=== PATIENT | female | born 1970 | race Caucasian/White ===

== ENCOUNTER 2024-11-05 23:54 | Emergency (ER) | payer OTHER ==
[2024-11-06] MEDS ORDERED: HYDROCODONE/APAP 5/325 MG TAB ONE (01:37)
[2024-11-06] MEDS ORDERED: ONDANSETRON 4 MG (ODT) TAB ONE (01:37)
--- NOTE | 2024-11-06 04:03 | EDPHYS ---
Physician Documentation [facility] Name: Roshni Liz Age: 54 yrs Sex: Female : 1970 Arrival Date: 11/05/2024 Time: 23:54 Bed 14 Private MD: ED Physician Brock Cancino HPI: 11/06 01:39 This 54 yrs old Female presents to ER via Ambulatory with complaints of Fall Injury, ms3 Wrist Injury, Shoulder Pain. 01:39 54-year-old female with past medical history of migraines presents to the emergency ms3 department status post fall while standing on a chair. Patient states she fell striking her head onto a hardwood floor. Patient denies loss of consciousness. Patient endorses nausea, dizziness, confusion. Patient's notes patient fell approximately 30 minutes prior to arrival. Patient is stating she has left wrist and a headache. 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 - Infectious Disease History:: Denies. - Social history:: Smoking status: Patient denies any tobacco usage or history of. Patient uses alcohol, occasionally. Patient/guardian denies using street drugs. ROS: 01:39 Constitutional: Negative for fever, and chills. Cardiovascular: Negative for chest ms3 pain, and palpitations. Respiratory: Negative for shortness of breath, cough, wheezing, and pleuritic chest pain, Abdomen/GI: Negative for abdominal pain, nausea, vomiting, diarrhea, and constipation, Skin: Negative for injury, rash, and discoloration, 01:39 MS/extremity: Positive for pain, tenderness, of the left wrist, Exam: 01:39 Constitutional: This is a well developed, well nourished patient who is awake, alert, ms3 and in no acute distress. Neck: Trachea midline, no cervical lymphadenopathy. Supple, full range of motion without nuchal rigidity, or vertebral point tenderness. No Meningismus. Cardiovascular: Regular rate and rhythm with a normal S1 and S2. No gallops, murmurs, or rubs. Normal PMI, no JVD. No pulse deficits. Respiratory: Lungs have equal breath sounds bilaterally, clear to auscultation and percussion. No rales, rhonchi or wheezes noted. No increased work of breathing, no retractions or nasal flaring. Abdomen/GI: Soft, non-tender, with normal bowel sounds. No distension or tympany. No guarding or rebound. No evidence of tenderness throughout. Back: No spinal tenderness. No costovertebral tenderness. Full range of motion. Skin: Warm, dry with normal turgor. Normal color with no rashes, no lesions, and no evidence of cellulitis. MS/ Extremity: Pulses equal, no cyanosis. Neurovascular intact. Full, normal range of motion. Neuro: Awake and alert, GCS 15, oriented to person, place, time, and situation. Cranial nerves II-XII grossly intact. Motor strength 5/5 in all extremities. Sensory grossly intact. Cerebellar exam normal. Normal gait. Vital Signs: 00:04 BP 125 / 82; Pulse 103; Resp 16 S; Temp 97.6(O); Pulse Ox 99% on R/A; Weight 74.39 kg lg3 (R); Height 5 ft. 6 in. (R); Pain 7/10; 00:30 BP 108 / 75; Pulse 92; Resp 16; Pulse Ox 98% on R/A; dd2 01:30 BP 92 / 65; Pulse 97; Resp 16; Pulse Ox 100% on R/A; dd2 02:30 BP 103 / 62; Pulse 86; Resp 16; Pulse Ox 99% on R/A; dd2 04:12 BP 101 / 61; Pulse 84; Resp 16; Pulse Ox 100% on R/A; dd2 00:04 Body Mass Index 26.47 (74.39 kg, 167.64 cm) lg3 00:04 Pain Scale: Adult lg3 [place] Coma Score: 00:16 Eye Response: spontaneous(4). Motor Response: obeys commands(6). Verbal Response: dd2 oriented(5). Total: 15. MDM: 00:15 Medical Screening Exam initiated ms3 01:39 Differential diagnosis: abrasion, closed head injury, contusion, fracture, sprain, ms3 strain. 05:56 Data reviewed: vital signs, nurses notes, lab test result(s), radiologic studies, and ms3 as a result, I will discharge patient. I considered the following discharge prescriptions or medication management in the emergency department Medications were administered in the Emergency Department. See MAR. Independent interpretation of the following test(s) in the Emergency Department X-Ray: My interpretation is Left wrist x-ray images reviewed by me did not reveal fractures. CT Scan: My interpretation is CT Brain without contrast images reviewed by me do not reveal ICH. Counseling: I had a detailed discussion with the patient and/or guardian regarding the historical points, exam findings, and any diagnostic results supporting the discharge/admit diagnosis, lab results, radiology results, the need for outpatient follow up, to return to the emergency department if symptoms worsen or persist or if there are any questions or concerns that arise at home. Special discussion: I discussed with the patient/guardian in detail that at this point there is no indication for admission to the hospital. It is understood, however, that if the symptoms persist or worsen the patient needs to return immediately for re-evaluation. ED course: Discussed my review of imaging with the patient and her . Patient has been wished to be discharged prior to final radiology reads. Patient to follow-up with primary care physician 2 to 3 days. Patient understands and agrees with plan. All questions were answered. Return precautions discussed include worsening symptoms, or any other concerns. After final results resulted patient was called and notified of her x-ray and CT results.. 11/06 00:15 Order name: CT Head Brain wo Cont ms3 11/06 00:16 Order name: Wrist Left (3 View) XRAY ms3 11/06 03:59 Order name: Splint - Wrist; Complete Time: 04:04 dd2 Administered Medications: 01:41 Drug: HYDROcodone-acetaminophen PO 5 mg-325 mg 1 tabs PO once Route: PO; dd2 02:10 Follow up: Response: No adverse reaction dd2 01:41 Drug: Ondansetron PO 4 mg PO once Route: PO; dd2 02:10 Follow up: Response: No adverse reaction dd2 Disposition Summary: 11/06/24 04:02 Discharge Ordered Notes: Location: Home ms3 Condition: Stable ms3 Diagnosis - Concussion without loss of consciousness ms3 - Fall (on)(from) incline ms3 - Pain in left wrist ms3 Followup: ms3 - With: Private Physician - When: 2 - 3 days - Reason: Recheck today's complaints Discharge Instructions: - Discharge Summary Sheet ms3 - Musculoskeletal Pain ms3 - Wrist Pain, Adult, [id number] ms3 - How to Use Cold Therapy ms3 Forms: - Medication Reconciliation Form ms3 - Antibiotic Education ms3 - Prescription Opioid Use ms3 - Patient Portal Instructions ms3 - Leadership Thank You Letter ms3 Prescriptions: - Ibuprofen 600 mg Oral Tablet - take 1 tablet ORAL route every 6 hours As needed take with food; 30 tablet; ms3 Refills: 0, Product Selection Permitted Signatures: Dispatcher [employer] Елена Ndiaye RN RN lg3 Brock Cancino DO DO ms3 HARRIET OZUNA RN RN dd2
--- NOTE | 2024-11-06 04:03 | ER ---
Nurse's Notes [facility] Name: Roshni Liz Age: 54 yrs Sex: Female : 1970 Arrival Date: 11/05/2024 Time: 23:54 Bed 14 Private MD: Diagnosis: Concussion without loss of consciousness;Fall (on)(from) incline;Pain in left wrist Presentation: 11/06 00:04 Chief complaint: Patient states: standing on chair and chair tipped and i fell landing lg3 on right side of head. denies LOC but reports confusion. pain to head and left wrist. Coronavirus screen: Client denies travel out of the [place] in the last 14 days. At this time, the client does not indicate any symptoms associated with coronavirus-19. Ebola Screen: No symptoms or risks identified at this time. Initial Sepsis Screen: Does the patient meet any 2 criteria? No. Patient's initial sepsis screen is negative. Does the patient have a suspected source of infection? No. Patient's initial sepsis screen is negative. Risk Assessment: Do you want to hurt yourself or someone else? Patient reports no desire to harm self or others. Onset of symptoms was November 06, 2024. 00:04 Method Of Arrival: Ambulatory lg3 00:04 Acuity: BRINDA 3 lg3 Triage Assessment: 00:07 General: Appears in no apparent distress. uncomfortable, Behavior is calm, cooperative. lg3 Pain: Complains of pain in head and dorsal aspect of left wrist. EENT: No deficits noted. No signs and/or symptoms were reported regarding the EENT system. Neuro: Level of Consciousness is awake, alert, obeys commands, confused, Oriented to person, place, time, situation, Speech slow to respond. Facial symmetry appears normal, Pupils are PERRLA. Cardiovascular: No deficits noted. Denies chest pain, shortness of breath, Capillary refill < 3 seconds Clubbing of nail beds is absent JVD is absent Patient's skin is warm and dry. Respiratory: No deficits noted. Airway is patent Respiratory effort is even, unlabored, Respiratory pattern is regular, symmetrical. GI: No deficits noted. Reports nausea. : No signs and/or symptoms were reported regarding the genitourinary system. Derm: No deficits noted. No signs and/or symptoms reported regarding the dermatologic system. Skin is intact, is healthy with good turgor, Skin is dry, Skin is normal, Skin temperature is warm Wound noted left anguiano. Musculoskeletal: Circulation, motion, and sensation intact. Range of motion: intact in all extremities, Reports pain in left wrist. 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 - Infectious Disease History:: Denies. - Social history:: Smoking status: Patient denies any tobacco usage or history of. Patient uses alcohol, occasionally. Patient/guardian denies using street drugs. Screenin:16 [facility] ED Fall Risk Assessment (Adult) History of falling in the last 3 months, dd2 including since admission Yes- single mechanical fall (1 pt) Confusion or Disorientation No (0 pts) Intoxicated or Sedated No (0 pts) Impaired Gait No (0 pts) Mobility Assist Device Used No (0 pt) Altered Elimination No (0 pt) Score/Fall Risk Level 0 - 2 = Low Risk Oriented to surroundings, Maintained a safe environment, Educated pt \T\ family on fall prevention, incl call for assistance when getting out of bed, Assessed \T\ reinforced patient's understanding of fall precautions, Hourly rounding (assess needs \T\ fall precautionary measures) done. Abuse screen: Denies threats or abuse. Denies injuries from another. Nutritional screening: No deficits noted. Tuberculosis screening: No symptoms or risk factors identified. Assessment: 00:16 General: Appears in no apparent distress. uncomfortable, Behavior is calm, cooperative, dd2 appropriate for age. Pain: Complains of pain in left wrist and left leg and left anguiano and head Pain does not radiate. Pain currently is 6 out of 10 on a pain scale. Neuro: Level of Consciousness is awake, alert, obeys commands, Oriented to person, place, time, situation, Appropriate for age Electronic Organ Mechanic are equal bilaterally Moves all extremities. Gait is steady, Speech is normal, Facial symmetry appears normal, Pupils are PERRLA, SPEECH WNL, SLOW TO RESPOND. Cardiovascular: No deficits noted. Respiratory: No deficits noted. Airway is patent Respiratory effort is even, unlabored, Respiratory pattern is regular, symmetrical. GI: Abdomen is non-distended, Abd is soft and non tender X 4 quads. Reports nausea. : No deficits noted. No signs and/or symptoms were reported regarding the genitourinary system. EENT: No deficits noted. No signs and/or symptoms were reported regarding the EENT system. Derm: Wound noted left anguiano Wound is ABRAISON. Musculoskeletal: Circulation, motion, and sensation intact. Range of motion: intact in all extremities, Reports pain in left wrist and left leg and left anguiano and head. Injury Description: Abrasion sustained to left anguiano. Vital Signs: 00:04 BP 125 / 82; Pulse 103; Resp 16 S; Temp 97.6(O); Pulse Ox 99% on R/A; Weight 74.39 kg lg3 (R); Height 5 ft. 6 in. (R); Pain 7/10; 00:30 BP 108 / 75; Pulse 92; Resp 16; Pulse Ox 98% on R/A; dd2 01:30 BP 92 / 65; Pulse 97; Resp 16; Pulse Ox 100% on R/A; dd2 02:30 BP 103 / 62; Pulse 86; Resp 16; Pulse Ox 99% on R/A; dd2 04:12 BP 101 / 61; Pulse 84; Resp 16; Pulse Ox 100% on R/A; dd2 00:04 Body Mass Index 26.47 (74.39 kg, 167.64 cm) lg3 00:04 Pain Scale: Adult lg3 [place] Coma Score: 00:16 Eye Response: spontaneous(4). Motor Response: obeys commands(6). Verbal Response: dd2 oriented(5). Total: 15. ED Course: 11/05 23:59 Patient arrived in ED. gm2 11/06 00:00 Brock Cancino DO is Attending Physician. ms3 00:07 Triage completed. lg3 00:07 Arm band placed on left wrist. lg3 00:16 Patient has correct armband on for positive identification. Bed in low position. Call dd2 light in reach. Side rails up X2. Client placed on continuous cardiac and pulse oximetry monitoring. NIBP monitoring applied. Door closed. Noise minimized. Warm blanket given. Pillow given. Verbal reassurance given. 00:16 No provider procedures requiring assistance completed. Patient did not have IV access dd2 during this emergency room visit. Patient maintains SpO2 saturation greater than 95% on room air. 00:45 Wrist Left (3 View) XRAY In Process Unspecified. EDMS 00:52 CT Head Brain wo Cont In Process Unspecified. EDMS 01:34 HARRIET OZUNA, RN is Primary Nurse. dd2 04:04 Velcro wrist splint applied to left wrist. dd2 04:12 Provided Education on: results f/u, medication . dd2 Administered Medications: 01:41 Drug: HYDROcodone-acetaminophen PO 5 mg-325 mg 1 tabs PO once Route: PO; dd2 02:10 Follow up: Response: No adverse reaction dd2 01:41 Drug: Ondansetron PO 4 mg PO once Route: PO; dd2 02:10 Follow up: Response: No adverse reaction dd2 Medication: 00:16 VIS not applicable for this client. dd2 Outcome: 04:02 Discharge ordered by MD. ms3 04:12 Discharged to home ambulatory, dd2 04:12 Condition: stable 04:12 Discharge instructions given to patient, significant other, Instructed on discharge instructions, follow up and referral plans. medication usage, Demonstrated understanding of instructions, follow-up care, medications, Prescriptions given X 1, 04:13 Patient left the ED. dd2 Signatures: Dispatcher [employer] Елена Ndiaye, DARLYN RN lg3 Brock Cancino DO DO ms3 Latia Edwards 2 HARRIET OZUNA, RN RN dd2
[2024-11-06 04:23] VITALS: TEMP 97.6
[2024-11-06 04:28] VITALS: BP 101/61; O2SAT 100
--- NOTE | 2024-11-06 05:06 | RAD REPORT ---
PROCEDURE: XR Left Wrist Complete, 3 Views CLINICAL INDICATION: The patient is 54 years old and is Female; PAIN Bed: TECHNIQUE: Frontal, lateral and oblique views of the left wrist. COMPARISON: No relevant prior studies available. FINDINGS: BONES/JOINTS: Mild degenerative changes of the left 1st CMC joint. No acute fracture. No suspicious lytic or blastic bone lesions. No subluxation or dislocation. SOFT TISSUES: Unremarkable No radiopaque foreign body. IMPRESSION: No acute findings in the left wrist. Electronically signed by: Jose F Barfield MD 11/06/2024 04:55 AM CDT RP Due to temporary technical issues with the PACS/mig33 reporting system, reports are being burke d by the in-house radiologist without review as a courtesy to ensure prompt reporting. The interpreting radiologist is fully responsible for the content of the report. Transcribed Date/Time: 11/06/2024 5:06 AM
--- NOTE | 2024-11-06 06:06 | RAD REPORT ---
PROCEDURE: CT Head Without Intravenous Contrast CLINICAL INDICATION: The patient is 54 years old and is Female; Trauma. TECHNIQUE: Axial computed tomography images of the head/brain without intravenous contrast. Sagittal and coron al reformatted images were created and reviewed. This CT exam was performed using one or more of the following dose reduction techniques: automated exposure control, adjustment of the mA and/or kV according to patient size, and/or use of iterative reconstruction technique. COMPARISON: None. FINDINGS: BRAIN: No extra-axial fluid collection. No intracranial hemorrhage. No transtentorial herniation. No focal trivedi-white matter differentiation abnormality. MIDLINE SHIFT: No midline shift. VENTRICLES: Unremarkable No ventriculomegaly. BONES/JOINTS: Incidental nonfusion of the posterior midline C1 ring noted. No fracture of the calvarium or visualized facial bones. SOFT TISSUES: Unremarkable SINUSES: No masses, bony erosion or evidence of acute sinusitis. MASTOID AIR CELLS: Unremarkable as visualized. No mastoid effusion. IMPRESSION: No acute intracranial abnormality. Electronically signed by: Jose F Barfield MD 11/06/2024 04:49 AM CDT Due to temporary technical issues with the PACS/[employer] reporting system, reports are being burke d by the in-house radiologist without review as a courtesy to ensure prompt reporting the interpreting radiologist is fully responsible for the content of the report. Transcribed Date/Time: 11/06/2024 6:05 AM
== END 2024-11-06 04:13 | disposition home or self-care (01) ==
LOC: ER 23:54
DX: S06.0X0A Concussion without loss of consciousness, initial encounter (principal); M25.532 Pain in left wrist; W10.2XXA Fall (on)(from) incline, initial encounter
CPT/HCPCS: 70450; 73110; 99284; Q0162